=== PATIENT | female | born 1980 | race Caucasian/White ===

== ENCOUNTER → 2020-07-03 17:46 | Outpatient (CLI) | payer OTHER, SELFPAY ==
--- NOTE | ~2020-07-03 | XR_ITS ---
EXAMINATION:XR cervical spine 4-5V, XR thoracic spine 3V DATE: 07/04/2020 09:32 INDICATION: Neck pain TECHNIQUE: 1. AP, lateral, lateral swimmers as well as open mouth and submental odontoid views of the cervical spine are provided. 2. AP, lateral and lateral swimmer's views of the thoracic spine were obtained. COMPARISON: None FINDINGS: Cervical spine: Alignment is normal. Odontoid is intact. Normal atlantoaxial interval. Vertebral body heights are no rmal. Disc spaces are normal. Minimal to mild cervical facet and uncovertebral osteoarthritis. Prever tebral soft tissues are normal. Thoracic spine: 7 degrees levocurvature between T1 and T4. Mild compensatory dextrocurvature of the more caudal thora cic spine. Sagittal alignment is normal. Vertebral body and disc heights are normal. Tiny endplate os teophytes at a few levels in the midthoracic spine. Visualized portions of the lungs are clear. No pl eural effusion or pneumothorax. Cardiomediastinal silhouette is normal. IMPRESSION: 1. Mild upper thoracic levocurvature with negligible cervical and thoracic spondylosis. Reviewed, dictated and finalized at location B. IMPRESSION: 1. Mild upper thoracic levocurvature with negligible cervical and thoracic spon dylosis.
== END ==
PROVIDERS: Visit Provider Chiropractor Rehabilitation
DX: M54.5 Low back pain (principal); M54.2 Cervicalgia; M41.84 Other forms of scoliosis, thoracic region; M47.814 Spondylosis without myelopathy or radiculopathy, thoracic region; M47.812 Spondylosis without myelopathy or radiculopathy, cervical region
CPT/HCPCS: 72050; 72072

== ENCOUNTER 2020-12-18 15:36 | Emergency (ER) | payer OTHER, SELFPAY ==
--- NOTE | ~2020-12-18 | XR_ITS ---
EXAMINATION: XR hand RT min 3V EXAM DATE: 12/18/2020 16:09 INDICATION: Right hand pain after swinging arm and hitting a wall. Thumb pain and swelling . TECHNIQUE: Right hand frontal, lateral and oblique projections obtained and reviewed. There is no pr ior study for comparison. FINDINGS: Right metacarpal bones are unremarkable. There are no acute fractures or dislocations abdoul ntified. There is no subcutaneous gas. The soft tissue is unremarkable. There are no radiopaque f oreign bodies. IMPRESSION: No acute osseous findings. Reviewed, dictated and finalized at location B. IMPRESSION: No acute osseous findings.
[2020-12-18 15:57] VITALS: BP 112/87; PULSE 70; RESP 18; TEMP 37.6; O2SAT 100
--- NOTE | 2020-12-18 16:01 | ED.GENADULT ---
HPI - General Adult General Chief complaint: Extremity Injury, Upper Stated complaint: right hand and arm injury Source: patient Mode of arrival: ambulatory Limitations: no limitations History of Present Illness HPI narrative: 40 y/o female. PMHx none reported. Presents to [facility] clinic today with acute complaints of RT thumb and hand pain S/P injury 24 hours ago. Pt reports to have hit her hand on the inside of a doorway, and has worsening pain and swelling since. No falls or additional injury has been identified. Related Data Home Medications Medication Instructions Recorded Confirmed bupropion HCl 150 mg PO DAILY 12/18/20 12/18/20 dextroamphetamine-amphetamine 15 mg PO DAILY 12/18/20 12/18/20 [Adderall XR] Allergies Allergy/AdvReac Type Severity Reaction Status Date / Time No Known Allergies Allergy Verified 12/18/20 16:02 Review of Systems Review of Systems: CONSTITUTIONAL: Denies fever, chills, sweats. EYES: Denies visual changes, redness, discharge. ENT: Denies rhinorrhea, congestion, sore throat, otalgia. CARDIOVASCULAR: Denies chest pain, palpitations, edema. RESPIRATORY: Denies dyspnea, wheezing, cough GASTROINTESTINAL: Denies abdominal pain, nausea, vomiting, diarrhea. GENITOURINARY: Denies dysuria, hematuria, abnormal discharge SKIN: Denies rash or itching. MUSCULOSKELETAL: RT hand pain following injury. Denies additional back pain, joint pain, or myalgia. NEUROLOGIC: Denies numbness, or focal weakness. PSYCHIATRIC: Denies anxiety or depression. All systems reviewed & are unremarkable except as noted in HPI and below PMFSH Family History Family History Grandparent Hypertension Social History Social History Second hand tobacco smoke exposure: No Alcohol intake: current Exam Narrative: GENERAL: This is a well-nourished, well-developed adult, in no apparent distress. HEAD: normocephalic, atraumatic. EYES: Sclera clear/white. EARS: External ears normal. NOSE: External nose normal. THROAT: Mucous membranes moist, posterior pharynx clear. No exudates. NECK: Neck supple. CARDIOVASCULAR: Regular rate and rhythm without murmurs, gallops, or rubs. Strong pulses RUE. RESPIRATORY: Clear to auscultation. Breath sounds equal bilaterally. No wheezes, rales, or rhonchi. GASTROINTESTINAL: Abdomen soft, non-tender. SKIN: warm, intact. With bruising and soft tissue swelling located to outer aspect of RT thumb overlying phalanx and MCP. There is tenderness to site, without obvious bony deformities. NEURO: Alert, active, and age appropriate. No focal neurologic deficits. Good sensation and discrimination RUE. EXTREMITIES: ROM RT thumb intact, but with pain. Full flexion and extension at site. Normal RT wrist. Course Vital Signs Vital signs: Vital Signs Temperature 37.6 C H 12/18/20 15:57 Pulse Rate 70 12/18/20 15:57 Respiratory Rate 18 12/18/20 15:57 Blood Pressure 112/87 12/18/20 15:57 Pulse Oximetry 100 12/18/20 15:57 Temperature 37.6 C H 12/18/20 15:57 Pulse Rate 70 12/18/20 15:57 Respiratory Rate 18 12/18/20 15:57 Blood Pressure 112/87 12/18/20 15:57 Pulse Oximetry 100 12/18/20 15:57 Medical Decision Making [facility] Narrative Medical decision making narrative: -Plain film radiology imaging reveals no acute bony Fx or disruption. -No neurological deficits. -NSAID prn. RICE. May obtain thumb splint from pharmacy OTC. -PCP F/U 1 WK is advised. Consider additional OP imaging or PT therapies with persistence. -ER W/Emergent health status changes. Differential Diagnosis Differential Diagnosis: Differential Diagnosis: Consideration of the following conditions may be warranted for the presenting problem, they are not final diagnoses: Upper extremity fracture, sprain/strain, contusion, puncture wound, cellulitis, or other. Medical R
== END 2020-12-18 16:24 | disposition home or self-care (01) ==
PROVIDERS: Emergency Provider Nurse Practitioner Adult Health; PCP Physician Assistant
DX: S63.601A Unspecified sprain of right thumb, initial encounter (principal); W22.8XXA Striking against or struck by other objects, initial encounter; S69.91XA Unspecified injury of right wrist, hand and finger(s), initial encounter
CPT/HCPCS: 73130; 99213; G0463

== ENCOUNTER 2021-11-30 10:49 | Emergency (ER) | payer OTHER, SELFPAY ==
--- NOTE | ~2021-11-30 | XR_ITS ---
EXAMINATION: XR shoulder LT min 2V DATE: 11/30/2021 11:31 INDICATION: Left shoulder pain. Fall. TECHNIQUE: 4 views of left shoulder were obtained. COMPARISON: None. FINDINGS: Bone alignment is normal. No fracture. Joint spaces are normal. IMPRESSION: 1. Normal left shoulder. Reviewed, dictated and finalized at location A. IMPRESSION: 1. Normal left shoulder.
--- NOTE | 2021-11-30 10:58 | ED.UPPEXIN ---
HPI - Extremity Injury (Upper) General Chief Complaint: Extremity Injury, Upper Stated Complaint: lt shoulder injury/fall Time Seen by Provider: 11/30/21 10:58 Source: patient Mode of arrival: ambulatory Limitations: no limitations History of Present Illness HPI narrative: Cristina is a 41-year-old female patient presenting to the clinic today with complaints of left-sided shoulder pain after falling last night. She reports that she was racing someone around the bases on the baseball field and fell and landed on her left shoulder. Related Data Home Medications Medication Instructions Recorded Confirmed bupropion HCl 150 mg 24 hr tablet, 150 mg PO DAILY 12/18/20 09/09/21 extended release dextroamphetamine-amphetamine ER 15 mg PO DAILY 12/18/20 09/09/21 15 mg 24hr capsule,extend release (Adderall XR) omeprazole 20 mg capsule,delayed 20 mg PO DAILY 11/30/21 11/30/21 release Allergies Allergy/AdvReac Type Severity Reaction Status Date / Time No Known Allergies Allergy Verified 11/30/21 11:41 Review of Systems Review of Systems: Pertinent positives per HPI. Patient denies any fever, chills, rash, headache, visual changes, dizziness, cough, runny nose, sore throat, shortness of breath, chest pain, palpitations, nausea, vomiting, diarrhea, constipation, abdominal pain, or any urinary issues. [facility] Past Medical History Medical History delivery delivered xs Encounter for insertion of mirena IUD 09/11/2019 insertion - removal 10/15/2020 History of recent ear, nose, and throat (ENT) procedure polyps, nodules-throat surgery Surgical History Surgical History H/O breast surgery implants History of genitourinary surgery Csection scar revision Hx of cholecystectomy Family History Family History Grandparent Hypertension Other Carcinoma of colon Social History Social History Smoking status: Never smoker Second hand tobacco smoke exposure: No Alcohol intake: current Alcohol use details: soically Substance use: never Substance use type: does not use Gender identity (if verbalized by the patient): Female Comments At the time of my signature, I reviewed and agree with the nursing past medical, surgical, social, and family history. There is no relevant family history pertinent to the patient complaint. Exam Narrative: General: Well-developed, well nourished, in no apparent distress Head: Normocephalic, atraumatic. Cardio: Regular rate and rhythm, s1 and s2 normal, no murmur appreciated. Resp: Clear to auscultation bilaterally, no rhonchi, rales, wheezing or rubs. Musculoskeletal: No deformity, tender to palpation over the musculature of the clavicle and anterior/lateral shoulder, range of motion limited due to pain, is unable to raise her shoulder above her head, negative drop arm test, able to resist with empty can full can test, peripheral pulse strong, no edema, no cyanosis, normal gait and station Course Course Emergency Course: Portions of this record may have been created with voice recognition software. Level of Care: Express Care Visit Vital Signs Vital signs: Vital Signs Temperature 36.6 C 11/30/21 11:10 Pulse Rate 84 11/30/21 11:10 Respiratory Rate 16 11/30/21 11:10 Blood Pressure 113/84 11/30/21 11:10 Pulse Oximetry 100 11/30/21 11:10 Oxygen Delivery Room Air 11/30/21 11:10 Temperature 36.6 C 11/30/21 11:10 Pulse Rate 84 11/30/21 11:10 Respiratory Rate 16 11/30/21 11:10 Blood Pressure 113/84 11/30/21 11:10 Pulse Oximetry 100 11/30/21 11:10 Oxygen Delivery Room Air 11/30/21 11:10 Vital signs reviewed MDM - Extremity Injury (Upper) MDM Narrative Medical decision m
[2021-11-30 11:10] VITALS: BP 113/84; PULSE 84; RESP 16; TEMP 36.6; O2SAT 100
== END 2021-11-30 11:45 | disposition home or self-care (01) ==
PROVIDERS: Emergency Provider Nurse Practitioner Family; PCP Physician Assistant
DX: S46.912A Strain of unspecified muscle, fascia and tendon at shoulder and upper arm level, left arm, initial encounter (principal); W19.XXXA Unspecified fall, initial encounter
CPT/HCPCS: 73030; 99213; G0463

== ENCOUNTER → 2022-06-01 15:25 | Outpatient (CLI) | payer OTHER, SELFPAY ==
--- NOTE | ~2022-06-01 | XR_ITS ---
XR sinus min 3V DATE: 06/01/2022 15:57 INDICATION: Maxillary sinus pain. Headache. TECHNIQUE: lobito Veronica, lateral and submental vertical views COMPARISON: None FINDINGS: The paranasal sinuses are normally developed and aerated. No mucoperiosteal thickening, air -fluid level or opacification of the paranasal sinuses is detected. The mastoid air cells appear unremarkable. IMPRESSION: Clear paranasal sinuses Reviewed, dictated and finalized at location L. 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
--- NOTE | ~2022-06-01 | XR_ITS ---
XR facial bones min 3V DATE: 06/01/2022 15:57 INDICATION: Contusion TECHNIQUE: lobito Veronica, lateral and submental vertical views COMPARISON: None FINDINGS: The nasal bones and anterior maxillary spine appear intact. No mandibular fracture or dislo cation is evident. The frontozygomatic sutures are intact. Orbital rims appear normal. No orbital blowout fracture is ev ident. The zygomatic arches appear symmetric and normal. No orbital emphysema. The paranasal sinuses appear normally developed and aerated without opacificati on or air-fluid levels. IMPRESSION: Negative Reviewed, dictated and finalized at location L. PLACER IMPRESSION: Negative
== END ==
PROVIDERS: PCP Physician Assistant; Visit Provider Physician Assistant
DX: S00.83XD Contusion of other part of head, subsequent encounter (principal); R51.9 Headache, unspecified; T14.90XD Injury, unspecified, subsequent encounter
CPT/HCPCS: 70150; 70220

== ENCOUNTER → 2022-07-09 15:23 | Outpatient (CLI) | payer OTHER, SELFPAY ==
--- NOTE | ~2022-07-09 | CT_ITS ---
EXAMINATION: CT sinus wo con DATE: 07/09/2022 15:48 INDICATION: Atypical facial pain TECHNIQUE: Computed tomography (CT) of the paranasal sinuses was performed without intravenous contra st. The dose-length product (DLP) was 292.39 mGy-cm. Iterative reconstruction was used. COMPARISON: None FINDINGS: There is normal development and pneumatization of the paranasal sinuses. There is mild muco jose luis thickening anteriorly in the right ethmoidal air cells. The frontal, sphenoid, left ethmoid, and maxillary sinuses are clear. The bilateral ostiomeatal complexes are patent. Visualized soft tissues are unremarkable. IMPRESSION: 1. Mild mucosal thickening anteriorly in the right ethmoidal air cells. Reviewed, dictated and finalized at location F.
== END ==
PROVIDERS: Visit Provider Otolaryngology
DX: G50.1 Atypical facial pain (principal); J34.89 Other specified disorders of nose and nasal sinuses
CPT/HCPCS: 70486

== ENCOUNTER 2022-10-29 12:02 | Outpatient (CLI) | payer OTHER, SELFPAY | END 2022-10-29 12:03 | disposition home or self-care (01) | LOC: ANHLAB 12:03 | PROVIDERS: Visit Provider Anesthesiology | DX: Z01.818 Encounter for other preprocedural examination (principal); R10.2 Pelvic and perineal pain | CPT/HCPCS: 36415; 86850; 86900; 86901 ==

== ENCOUNTER 2022-11-01 00:20 | Day surgery (SDC) | payer OTHER, SELFPAY ==
[2022-10-26 16:29] VITALS: BMI 19.3
--- NOTE | 2022-10-26 16:50 | PC.NURSE ---
Report to the Outpatient Waiting Room, entrance under the green pavilion located off [facility], at time 0630 on date 11/01/22. Planned Procedure Time: _0830 Time changes happen often and if your time is changed the preop area will call you the afternoon before. - You and your visitor will be asked to self-screen and do not enter if you have any COVID symptoms. - A mask is optional within the hospital at this time. Patients may have clear liquids (water, carbonated beverages, clear teas, apple juice) until 3 hours prior to surgery with a maximum of 20 ounces. - No food from midnight until time of surgery - Infants may have breast milk until 4 hours before surgery, infant formula 6 hours prior to surgery. - Children will be allowed to drink immediately following surgery. If applicable, please bring a bottle or sippy cup to assist with drinking. Juice, water, soda, and popsicles are readily available. For infants on formula, please bring formula the day of surgery. Pacifiers are allowed. Take the following medications with a SIP of water the morning of surgery: _bupropion, adderall_ DO NOT STOP ANY OF YOUR OTHER PRESCRIPTION MEDICATIONS PRIOR TO SURGERY ?EXCEPT THE FOLLOWING Medications to discontinue per physician Date to take last dose Please no make-up, nail yi, hairspray, perfume, deodorant, or body powder the day of surgery. No jewelry (including any body piercings) or valuables the day of surgery, leave them at home. Please take a shower or bath the night before, or the morning of, surgery with an antibacterial soap. Wear comfortable, loose fitting clothing. Children are encouraged to wear pajamas. - Jewelry must be removed prior to entering the operating room. Rings and piercings that are not removed may be cut off. - The hospital will not accept responsibility for valuables. - Please leave all valuables, including medications, at home the day of surgery. If you are going home after surgery, a licensed peg driver must drive you home. - NO public transportation without another adult if you receive anesthesia. - We recommend that an adult stay with you for 24 hours following discharge. - We also recommend that you do not drive, make important decision, drink alcoholic beverages, or take any drugs that were not prescribed by your health care provider for at least 24 hours after your discharge time. For Pediatric surgeries, we recommend two adults accompany the child home. Follow any additional instructions given to you from your surgeon. If you or anyone in your household have experienced Covid symptoms in the past week, please notify your surgeon or the nurse liaison at the phone number below for possible testing. Telephone instructions given to Cristina Lance_and asked if any additional questions and then verbalized understanding. Patient advised to call surgeon office or pre surgery nurse liaison [phone] if any additional questions.
--- NOTE | 2022-10-31 17:27 | PM.IMHP ---
H&P: HPI History of Present Illness Date/Time: 10/31/22 17:27 Chief Complaint: pelvic pain Narrative: Cristina is a 42yo P2012, who presents for scheduled surgery. She has a normal pap 08/2021. She previously has had multiple IUDs but had increased pelvic pain/pressure with the last one (verified in correct place on US) and had it removed. She has since been using the patch in a continuous manner to skip cycles. She continues to have pelvic pain; intercourse is even more uncomfortable than last year and has pelvic cramping/spasms for days after intercourse. She has had a rough year and reports the pain is more bothersome and affecting her life. No AUB. Had a normal CT scan 03/2018. Review of Systems Constitutional: Constitutional: Denies chills, Denies fever(s) and Denies headache(s) Eyes: Eyes: Denies change in vision ENT: Denies dizziness and Denies headache(s) Cardiovascular: Cardiovascular: Denies chest pain and Denies dyspnea Respiratory: Respiratory: Denies cough and Denies dyspnea Gastrointestinal: Gastrointestinal: Denies abdominal pain and Denies change in stool character Genitourinary: Genitourinary: Denies abnormal menses, Denies pelvic pain, Denies vaginal discharge, Denies vaginal odor and Denies vaginal pruritus Neurologic: Denies dizziness and Denies headache(s) Psychiatric: Psychiatric: Denies anxiety and Denies depression [facility] Past Medical History Medical History delivery delivered xs Encounter for insertion of mirena IUD 09/11/2019 insertion - removal 10/15/2020 History of recent ear, nose, and throat (ENT) procedure polyps, nodules-throat surgery Surgical History Surgical History H/O breast surgery implants History of genitourinary surgery Csection scar revision Hx of cholecystectomy Family History Family History Grandparent Hypertension Other Carcinoma of colon Social History Social History Smoking status: Never smoker Second hand tobacco smoke exposure: No Alcohol intake: current Alcohol use details: soically Substance use: never Substance use type: does not use Lack of Transportation: No Lack of Food: Never True Current Housing: I Have Housing Concerned About Future Housing: No Difficulty Paying Gas/Electric Bills: No Difficulty Paying for Meds: No Currently Unemployed: No Education: Master's Degree or Higher Difficulty w/ Childcare or Family Care: No Living arrangements: with family Occupation/Education: occupation Gender identity (if verbalized by the patient): Female Sexual Orientation (if Verbalized by the Patient): Straight or Heterosexual Spiritual care concerns: No Meds Home Medications and Allergies Home Medications Medication Instructions Recorded Confirmed Type bupropion HCl 150 mg 24 hr tablet, 450 mg PO DAILY 12/18/20 10/26/22 History extended release dextroamphetamine-amphetamine ER 20 mg PO DAILY 12/18/20 10/26/22 History 15 mg 24hr capsule,extend release (Adderall XR) omeprazole 20 mg capsule,delayed 20 mg PO DAILY 11/30/21 10/26/22 History release norelgestromin 150 mcg-e.estradiol 1 patch transdermal Q7D #12 ea 09/15/22 10/26/22 Rx 35 mcg/24 hr weekly transderm patch (Xulane) Allergies Allergy/AdvReac Type Severity Reaction Status Date / Time No Known Allergies Allergy Verified 09/15/22 09:48 Exam Const: General: cooperative, healthy appearing, comfortable and no acute distress Orientation/consciousness: patient oriented x3 Resp: Effort & Inspection: normal respiratory effort Cardio: Rate: regular rate GI: Inspection: normal to inspection GI Palp: No abdominal tenderness and Yes Soft to palpation : Other: deferred to OR Skin: Ge
[2022-11-01] VITALS (10 sets, daily range): BP systolic 86–107; BP diastolic 51–67; PULSE 63–98; RESP 12–16; TEMP 36.4–37.7; O2SAT 98–100; BMI 19.5
--- NOTE | 2022-11-01 06:44 | WPDANESEPPF ---
Anes - Initial Pre Proc Eval Procedure: Operation Date: 11/01/22 07:30 Proposed Procedures p Robotic Assisted Total Laparoscopic Hysterectomy with Bilateral Salpingectomy, - Makenna Brown MD s Cystoscopy - Makenna Brown MD Date/Time: 11/01/22 06:44 Surgeon: Makenna Brown MD Pre Op Diagnosis: pelvic pain Patient Data Age: 42 Gender: F Height: 1.57 m Weight: 48 kg Allergies Allergy/AdvReac Type Severity Reaction Status Date / Time No Known Allergies Allergy Verified 09/15/22 09:48 Home Medications Medication Instructions Recorded Confirmed Type bupropion HCl 150 mg 24 hr tablet, 450 mg PO DAILY 12/18/20 10/26/22 History extended release dextroamphetamine-amphetamine ER 20 mg PO DAILY 12/18/20 10/26/22 History 15 mg 24hr capsule,extend release (Adderall XR) omeprazole 20 mg capsule,delayed 20 mg PO DAILY 11/30/21 10/26/22 History release norelgestromin 150 mcg-e.estradiol 1 patch transdermal Q7D #12 ea 09/15/22 10/26/22 Rx 35 mcg/24 hr weekly transderm patch (Xulane) Patient hx anesthesia problems: post op nausea/vomiting Family hx anesthesia problems: none and post op nausea/vomiting Results Review: All pre-operative results and documents have been reviewed as part of the pre-operative evaluation. [facility] Past Medical History Medical History delivery delivered xs Encounter for insertion of mirena IUD 09/11/2019 insertion - removal 10/15/2020 History of recent ear, nose, and throat (ENT) procedure polyps, nodules-throat surgery Surgical History Surgical History H/O breast surgery implants History of genitourinary surgery Csection scar revision Hx of cholecystectomy Family History Family History Grandparent Hypertension Other Carcinoma of colon Social History Social History Smoking status: Never smoker Second hand tobacco smoke exposure: No Alcohol intake: current Alcohol use details: soically Substance use: never Substance use type: does not use Lack of Transportation: No Lack of Food: Never True Current Housing: I Have Housing Concerned About Future Housing: No Difficulty Paying Gas/Electric Bills: No Difficulty Paying for Meds: No Currently Unemployed: No Education: Master's Degree or Higher Difficulty w/ Childcare or Family Care: No Living arrangements: with family Occupation/Education: occupation Gender identity (if verbalized by the patient): Female Sexual Orientation (if Verbalized by the Patient): Straight or Heterosexual Spiritual care concerns: No Anes - Eval Final PreProcedure Day of Procedure 11/01/22 06:44 Patient weight: normal Heart: regular rate and rhythm Lungs: clear to auscultation Airway: Mallampati scale class II Neurological: alert and oriented Last oral intake: >/= 8 hours ASA classification: II Emergent: no Anesthetic plan: proceed Anesthesia type and monitoring: general ETT and standard monitoring Results Review: All pre-operative results and documents have been reviewed as part of the pre-operative evaluation. Informed Consent: The patient's anesthetic plan and its attendant risks and benefits were discussed with the patient/family/POA. Questions were solicited and answers provided to the satisfaction of the patient/family/POA.
[2022-11-01] MEDS: SCOPOLAMINE 1.5 MG PATCH TRANSDERM (06:49)
[2022-11-01] MEDS: ACETAMINOPHEN 500 MG TABLET 1000 MG PO ×3 (06:50→19:55)
[2022-11-01] MEDS: KETOROLAC 15 MG/ML VIAL (*BKC) IV PUSH (06:50)
[2022-11-01] MEDS: LACTATED RINGERS 1,000 ML 30 ML IV CONT ×2 (06:50→09:13)
--- NOTE | 2022-11-01 07:10 | WPDHPUPDATE1 ---
History and Physical Update Update Date/Time: 11/01/22 07:10 History and Physical has been reviewed, including an updated exam of the patient. There are NO changes in the patient's condition. Risks, benefits, and alternatives have been discussed and questions answered. Patient agrees to proceed with RA-TLH, bilateral salpingectomy with cystoscopy..
[2022-11-01] MEDS: ceFAZolin 2 GM/D5W 50 ML 2 GM/50 ML BAG IVPB (07:25)
[2022-11-01] MEDS: LIDO 1%/EPINEPHRINE 1:100,000 20 ML VIAL 30 ML INFILTRATE (08:14)
--- NOTE | 2022-11-01 09:11 | W.PM.PROC2 ---
Procedure Note - Detailed Date of Procedure 11/01/22 Pre-op Diagnosis pelvic pain Post-op Diagnosis Same Procedure Performed Robotic assisted total laparoscopic hysterectomy with bilateral salpingectomy and cystoscopy Surgeon Makenna Brown MD Anesthesia General and Local (15cc of 1% lidocaine with epinephrine ) Findings Cervix 2.5cm wide; uterus sounded to 7cm. Bilateral fallopian tubes with multiple paratubal cysts measuring 0.5-1cm; adhesions of the left ovary to pelvic side wall, colon also noted to be adhesed to the left pelvic side wall and to the left ovary. Normal ovaries without abnormalities. Bladder without defects and filled without issues. Bilateral ureteral efflux noted. Good hemostasis at end of case. Description of Procedure Cristina was taken to the operating room where she was placed under general anesthesia without issues. She received 2 g Ancef.? She was then prepped and draped in the usual sterile fashion? in the dorsal lithotomy position with her legs in low Toño stirrups and her arms tucked at her side.? A time-out was performed.? My attention was turned down below where a corea catheter was placed. A bivalve speculum was placed within the vagina. The cervix was easily identified and the anterior lip of the cervix was grasped with single-tooth tenaculum.? The uterus was then sounded to 7cm.? The cervix was serially dilated to allow for the MARY JANE uterine manipulator; which was placed w/o issue (6cm tip with 2.5cm cervical ring).? My gloves were changed and attention was then turned to the abdomen. A supraumbilical incision was made, and a 5 mm trocar was placed under direct visualization.? Once intra-abdominal placement was confirmed, the abdomen was insufflated with carbon dioxide gas.? An abdominal survey was performed and the above findings were noted.? Two additional ports were placed on the right side and one port on the left side under direct visualization without issues.? The umbilical port was switched out for a robotic port under direct visualization.? The patient was then placed in deep Trendelenburg, with the legs slightly lowered.? The robot was then docked. The instruments were placed intra-abdominally under direct visualization.? I then un-scrubbed and went to the robotic console. I then started my hysterectomy on the left side. The ureter was easily identified transperitoneally and well out of the surgical field. The fallopian tube was elevated and the mesosalpinx was coagulated and transected. The adhesions of the left ovary to the pelivc side wall were also taken down. The colonic adhesions were also released from the side wall.? The round ligament was clamped, coagulated, and transected. The uterine ovarian artery was then serially clamped, coagulated, and transected with good hemostasis. The broad ligament was then dissected anteriorly and posteriorly skeletonizing the uterine artery.? The bladder flap was then developed on the left side and carried around the right, anteriorly.? The uterine artery was then serially clamped and coagulated.? Once the vessel was adequately coagulated, it was then transected with good hemostasis. The same procedure was then performed on the right side without complications. ? The uterus was noted to be devascularized.? The bladder flap was verified out of the surgical field and the colpotomy was started anteriorly and continued in a clockwise fashion until the uterus was released.? The uterus was removed from the abdomen via the vagina without complications.? The vaginal cuff had small bleeders that were made hemostatic without complications.? The vaginal cuff was then reapproximated using a 0 V lock suture. The pelvis was then irrigated and suctioned free of all clots and debris.? Good hemostasis was noted. All instruments were removed from the abdomen and the robot was undocked.? I then scrubbed back in and verified that the cuff was intact without any defects.? The Corea catheter was then removed.? The cys
--- NOTE | 2022-11-01 09:37 | SUR.PHASEI ---
0935: Simple mask removed.
--- NOTE | 2022-11-01 10:20 | PC.NURSE ---
This patient, Cristina Lance, was received from PACU on 11/01/22 at 1020. Patient/family oriented to unit policies and routines
[2022-11-01] MEDS: KETOROLAC 30 MG/ML VIAL (*BKC) IV PUSH ×3 (10:45→23:13)
[2022-11-01] MEDS: HYDROmorphone HCL INJ (*CRX) 1 MG/ML SYR 0.5 MG IV PUSH ×2 (11:57→15:11)
[2022-11-01] MEDS: LACTATED RINGERS 1,000 ML 75 ML IV CONT (13:02)
[2022-11-01] MEDS: DOCUSATE SODIUM 100 MG CAPSULE PO (17:18)
[2022-11-01] MEDS: oxyCODONE HCL (*CRX) 5 MG TAB IR PO ×2 (19:37→23:10)
[2022-11-01] MEDS: SIMETHICONE 80 MG TAB.CHEW PO ×2 (19:38→23:09)
[2022-11-02] MEDS: ACETAMINOPHEN 500 MG TABLET 1000 MG PO ×2 (02:11→08:05)
[2022-11-02 03:45] VITALS: BP 83/52; PULSE 70; RESP 16; TEMP 37.3
[2022-11-02 04:03] LABS: Basophils Percent Auto 0.3 % (0.2-1.2); Eosinophils Percent Auto 0.1 % (0-4.4); Hematocrit 30.7 % (37.0-47.0); Hemoglobin 10.1 g/dL (12.0-15.0); Immature Granulocyte Absolute 0.02 K/mm3 (0.00-0.031); Immature Granulocyte Percent A 0.2 % (0-0.5); Lymphocytes Absolute Auto 1.75 K/mm3 (0.9-3.2); Lymphocytes Percent Auto 19.7 % (18.3-44.2); Mean Corpuscular HGB Conc 32.9 g/dl (32-36); Mean Corpuscular Hemoglobin 32.1 pg (26-34); Mean Corpuscular Volume 97.5 fl (80-100); Mean Platelet Volume 11.4 fl (7.4-10.4); Monocytes Absolute Auto 0.3 K/mm3 (0.1-0.6); Monocytes Percent Auto 3.4 % (2.6-8.5); Neutrophils Absolute Auto 6.8 K/mm3 (1.3-6.7); Neutrophils Percent Auto 76.3 % (45.5-73.1); Platelet Count Result 153 k/mm3 (150-375); Red Blood Count 3.15 M/mm3 (4.2-5.4); Red Cell Distribution Width 12.2 % (11.5-14.5); White Blood Count 8.9 K/mm3 (4.5-10.0)
[2022-11-02 04:13] LABS: Anion Gap 1 mmol/L (8-16); Blood Urea Nitrogen 10 mg/dL (7-17); Calcium 8.3 mg/dL (8.4-10.2); Carbon Dioxide 28 mmol/L (22-30); Chloride 103 mmol/L (98-107); Estimated CRCL calculation 60 ml/min; Estimated Glomerular Filt Rate > 60; Glucose 91 mg/dL (65-110); Potassium 3.8 mmol/L (3.4-5.0); Sodium 132 mmol/L (137-145)
--- NOTE | 2022-11-02 07:03 | PM.GYNPNOP ---
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 FINISHER - A/P Assessment and plan (1) S/P laparoscopic hysterectomy: Code(s): Z90.710 - Acquired absence of both cervix and uterus Status: Acute Postoperative Procedures: Procedures Operation Date: 11/01/22 07:30 Actual Procedure Side Surgeon p Robotic Assisted Total Laparoscopic Hysterectomy with Bilateral Salpingectomy, Bilateral Makenna Brown MD s Cystoscopy Not Applicable Makenna Brown MD Postoperative day: 1 Postoperative status: doing well Postoperative plan: routine post-op care and discharge Time Spent With Patient Time: Total time spent is greater than 50% in coordination of care (as documented) at patient's floor/unit and/or counseling patient: Time with patient: less than 15 minutes DEICER FINISHER- PN:Subj Post-Op Subjective Date/time seen: 11/02/22 07:03 Interval history: POD#1 Cristina reports doing well today. No issues overnight. Her pain is controlled with PO meds, had issue immediately post-op with pain control but doing better now. She has tolerated regular diet. She denies any vaginal bleeding. She has voided. Unsure if she's passed flatus, but hears her stomach making noises. She has ambulated and denies any symptoms of anemia. Review of Systems Review of Systems: All systems reviewed & are unremarkable except as noted in HPI and below (HPI) Constitutional: Constitutional: Denies chills, Denies fever(s) and Denies headache(s) Eyes: Eyes: Denies change in vision ENT: Denies dizziness and Denies headache(s) Cardiovascular: Cardiovascular: Denies chest pain and Denies rapid heart rate Respiratory: Respiratory: Denies cough Genitourinary: Genitourinary: Denies abnormal vaginal bleeding Neurologic: Denies dizziness and Denies headache(s) Exam Const: General: cooperative, healthy appearing, comfortable and no acute distress Orientation/consciousness: patient oriented x3 Resp: Effort & Inspection: normal respiratory effort Auscultation: clear to auscultation bilaterally Cardio: Rate: regular rate GI: Inspection: normal to inspection and incision (4 LSC incisions ) GI Palp: Yes abdominal tenderness (appropriate) and Yes Soft to palpation Auscultation: normal bowel sounds : Other: normal bleeding on pad Skin: General skin exam: normal color Neuro: General: patient oriented x3 Psych: Appearance: grossly normal Affect: normal affect Attitude: cooperative DEICER FINISHER - PN: Obj Data Vital Signs Vital Signs: Vital Signs - 24 hr 11/01/22 09:13 11/01/22 09:25 11/01/22 09:40 Temperature 98.2 F Pulse Rate 98 74 72 Respiratory Rate 12 14 12 Blood Pressure 107/51 L 100/62 100/60 Pulse Oximetry 100 100 98 Oxygen Delivery Simple Face Mask Simple Face Mask Room Air Oxygen Flow Rate 10 10 11/01/22 09:55 11/01/22 10:05 11/01/22 10:20 Temperature 97.6 F Pulse Rate 79 75 72 Respiratory Rate 14 16 16 Blood Pressure 94/60 L 99/67 L 99/67 L Pulse Oximetry 99 100 100 Oxygen Delivery Room Air Room Air Oxygen Flow Rate 11/01/22 15:00 11/01/22 19:03 11/01/22 23:20 Temperature 98.1 F 99.8 F H 99.1 F Pulse Rate 82 75 63 Respiratory Rate 16 16 16 Blood Pressure 93/67 L 90/57 L 86/53 L Pulse Oximetry 99 Oxygen Delivery Oxygen Flow Rate 11/02/22 03:45 Temperature 99.1 F Pulse Rate 70 Respiratory Rate 16 Blood Pressure 83/52 L Pulse Oximetry Oxygen Delivery Oxygen Flow Rate Intake/Output Intake/Output: Intake & Output 10/30/22 10/31/22 11/01/22 11/02/22 23:59 23:59 23:59 23:59 Intake Total 2490 500 Output Total 875 700 Balance 1615 -200 Meds/Results Medications: Active Medications Generic Name Dose Route Start Last Admin Trade Name Freq PRN Reason Stop Dose Admin Acetaminophen 1,000 mg 11/01/22 10:12 11/02/22 02:11 Acetaminophen 500 Mg Tablet PO 1,000 mg Q6H CHARLI Administration Bupropion HCl 450 mg 11/02/22 09:00 Bupropion Hcl Xl (24 Hr) 150 Mg Tabcr PO DAILY CHARLI Docusate Sodium 100 mg
[2022-11-02] MEDS: IBUPROFEN 600 MG TABLET PO (08:06)
[2022-11-02] MEDS: DOCUSATE SODIUM 100 MG CAPSULE PO (08:06)
[2022-11-02] MEDS: oxyCODONE HCL (*CRX) 5 MG TAB IR 10 MG PO (08:08)
[2022-11-02] MEDS: SIMETHICONE 80 MG TAB.CHEW PO (08:08)
[2022-11-02 08:15] VITALS: BP 89/56; PULSE 73; RESP 18; TEMP 36.6; O2SAT 99
--- NOTE | 2022-11-02 08:24 | WPDANESPN ---
Anes - Prog Note Post-Op Date/Time: 11/02/22 08:24 Cardiovascular status: normal Respiratory status: normal Airway patency: baseline Mental status: baseline Post-Op hydration status: normal Vital Signs: Last Vital Signs Temp 37.3 C 11/02/22 03:45 Pulse 70 11/02/22 03:45 Resp 16 11/02/22 03:45 BP 83/52 L 11/02/22 03:45 Pulse Ox 99 11/01/22 15:00 O2 Del Method Room Air 11/01/22 10:05 O2 Flow Rate 10 11/01/22 09:25 Pain Score (VAS): 0 I/O: Intake & Output 11/01/22 11/02/22 11/02/22 23:59 07:59 15:59 Intake Total 240 500 Output Total 700 Balance 240 -200 Laboratory Tests 11/02/22 03:53 11/02/22 03:53 11/02/22 03:53 WBC 8.9 RBC 3.15 L Hgb 10.1 L Hct 30.7 L MCV 97.5 MCH 32.1 MCHC 32.9 RDW 12.2 Plt Count 153 MPV 11.4 H Immature Gran % (Auto) 0.2 Neut % (Auto) 76.3 H Lymph % (Auto) 19.7 Motley % (Auto) 3.4 Eos % (Auto) 0.1 Baso % (Auto) 0.3 Lymph # (Auto) 1.75 Motley # (Auto) 0.3 Eos # (Auto) 0.0 Baso # (Auto) 0.0 Abs Immat Gran (auto) 0.02 Absolute Neuts (auto) 6.8 H Absolute Nucleated RBC 0.0 Nucleated RBC % 0.0 Sodium 132 L Potassium 3.8 Chloride 103 Carbon Dioxide 28 Anion Gap 1 L BUN 10 Creatinine 0.80 Estim Creat Clear Calc 60 Estimated GFR > 60 Glucose 91 Calcium 8.3 L Post-procedural complaints: none Patient Feedback: Patient satisfied with anesthetic care.
== END 2022-11-02 10:15 | disposition home or self-care (01) ==
LOC: ANHSURGERY 09:38 → ANHOB2 10:13
PROVIDERS: PCP Physician Assistant; Visit Provider Obstetrics & Gynecology
PROC: (CPT 58571; principal; 2022-11-01 07:30)
PROC: 0TJB8ZZ Inspection of Bladder, Via Natural or Artificial Opening Endoscopic (ICD-10-PCS; CPT 52000; 2022-11-01 07:30)
DX: N73.6 Female pelvic peritoneal adhesions (postinfective) (principal); R10.2 Pelvic and perineal pain; N83.8 Other noninflammatory disorders of ovary, fallopian tube and broad ligament; G89.29 Other chronic pain
CPT/HCPCS: 58571; S2900; 36415; 80048; 85025; 86850; 86900; 86901; 88307; 99199; A9270; J0690; J1100; J1170; J1885; J2250; J2405; J2704; J2710; J3010; J7030; J7120